=== PATIENT | female | born 1935 | race Caucasian/White ===

== ENCOUNTER → 2021-01-06 | Outpatient (REF) | payer MEDICARE ==
[2021-01-06 13:45] LABS: ATYPICAL LYMPH 33 % (0-5); EOSINOPHILS 3 % (0-3); LYMPHOCYTES 33 % (16-44); MONOCYTES 7 % (0-5); NEUTROPHILS 24 % (28-66); PLATELET ESTIMATE NORMAL (NORMAL); SMUDGE CELLS 1+
== END ==
LOC: M LAB REF 12:15
PROVIDERS: ATTEND Family Medicine
DX: D72.9 Disorder of white blood cells, unspecified (principal)

== ENCOUNTER → 2021-06-22 | Outpatient (REF) | payer MEDICARE ==
[2021-06-22 20:18] LABS: ATYPICAL LYMPH 5 % (0-5); BASOPHILS 1 % (0-1); EOSINOPHILS 2 % (0-3); LYMPHOCYTES 65 % (16-44); MONOCYTES 6 % (0-5); NEUTROPHILS 21 % (28-66)
[2021-06-22 20:19] LABS: PLATELET ESTIMATE NORMAL (NORMAL)
== END ==
LOC: M LAB REF 16:24
PROVIDERS: ATTEND Family Medicine
DX: D72.820 Lymphocytosis (symptomatic) (principal)

== ENCOUNTER → 2021-06-28 | Outpatient (REF) | payer MEDICARE | LOC: M LAB REF 11:39 | PROVIDERS: ATTEND Family Medicine | DX: D72.89 Other specified disorders of white blood cells (principal) ==

== ENCOUNTER → 2021-12-21 | Outpatient (REF) | payer MEDICARE ==
[~2021-12-21] MED LIST: BIMA01SOL
[2021-12-21 19:43] LABS: ATYPICAL LYMPH 4 % (0-5); EOSINOPHILS 2 % (0-3); LYMPHOCYTES 66 % (16-44); MONOCYTES 1 % (0-5); NEUTROPHILS 27 % (28-66); SMUDGE CELLS 1+
[2021-12-21 19:44] LABS: PLATELET ESTIMATE NORMAL (NORMAL)
== END ==
LOC: M LAB REF 16:25
PROVIDERS: ATTEND Family Medicine
DX: D72.9 Disorder of white blood cells, unspecified (principal)

== ENCOUNTER → 2022-06-13 | Outpatient (CLI) | payer MEDICARE ==
[~2022-06-13] MED LIST changes: +XANA0.25
== END ==
LOC: M EKG 10:36
PROVIDERS: ATTEND Family Medicine
DX: R00.2 Palpitations (principal)

== ENCOUNTER → 2022-06-22 | Outpatient (REF) | payer MEDICARE ==
[2022-06-22 20:58] LABS: ATYPICAL LYMPH 1 % (0-5); EOSINOPHILS 2 % (0-3); LYMPHOCYTES 70 % (16-44); MONOCYTES 2 % (0-5); NEUTROPHILS 25 % (28-66)
[2022-06-22 20:59] LABS: PLATELET ESTIMATE NORMAL (NORMAL)
== END ==
LOC: M LAB REF 16:09
PROVIDERS: ATTEND Family Medicine
DX: D72.9 Disorder of white blood cells, unspecified (principal)

== ENCOUNTER → 2023-04-27 | Outpatient (REF) | payer MEDICARE | LOC: M LAB REF 21:09 | PROVIDERS: ATTEND Physician Assistant | DX: B34.9 Viral infection, unspecified (principal) ==

== ENCOUNTER → 2023-05-11 | Outpatient (CLI) | payer MEDICARE | LOC: M RAD 14:37 | PROVIDERS: ATTEND Physician Assistant | DX: J34.89 Other specified disorders of nose and nasal sinuses (principal) ==

== ENCOUNTER → 2023-06-15 | Outpatient (REF) | payer MEDICARE | LOC: M LAB REF 16:11 | PROVIDERS: ATTEND Family Medicine | DX: N39.0 Urinary tract infection, site not specified (principal) ==

== ENCOUNTER → 2023-07-06 | Outpatient (REF) | payer MEDICARE | LOC: M LAB REF 16:15 | PROVIDERS: ATTEND Physician Assistant Medical | DX: N39.0 Urinary tract infection, site not specified (principal) ==

== ENCOUNTER → 2023-07-21 | Outpatient (REF) | payer MEDICARE | LOC: M LAB REF 13:44 | PROVIDERS: ATTEND Family Medicine | DX: R35.0 Frequency of micturition (principal); R30.0 Dysuria ==

== ENCOUNTER → 2023-08-07 | Outpatient (REF) | payer MEDICARE | LOC: M LAB REF 16:19 | PROVIDERS: ATTEND Family Medicine | DX: R35.0 Frequency of micturition (principal) ==

== ENCOUNTER → 2023-09-18 | Outpatient (REF) | payer MEDICARE | LOC: M LAB REF 16:23 | PROVIDERS: ATTEND Family Medicine | DX: Z01.818 Encounter for other preprocedural examination (principal); R35.0 Frequency of micturition ==

== ENCOUNTER 2023-09-26 07:27 | Day surgery (SDC) | payer MEDICARE ==
[~2023-09-26] VITALS: Ht 154.9 cm; Wt 47.3 kg
[~2023-09-26 07:27] MED LIST changes: +BSS IRR 500ML/OMIDRIA 4ML IRR BAG (OR ONLY) As Ordered ONE; +CEFUROXIME 1MG/0.1ML INTRACAMERAL INJ As Ordered ONE; +CYCLOPENTOLATE 1% OPHTH SOLN 2ML BTL OS SCH; +LIDOCAINE 1% SDV 5ML VIAL As Ordered ONE; +OFLOXACIN 0.3 % (OCUFLOX) OPTH SOL 5ML OS SCH; +PHENYLEPHRINE 2.5% OPHTH SOL 2ML OS SCH; +PROPARACAINE 0.5% OPHTH SOL 15ML OS ONE; +TROPICAMIDE 1% OPHTH SOLN 15ML OS SCH
[2023-09-26] MEDS ORDERED: MOXIFLOXACIN 0.6MG/0.4ML INTRAOCULAR SYRINGE IO ONE (07:30)
[2023-09-26] MEDS ORDERED: MIDAZOLAM INJ 2MG/2ML VIAL As Ordered ONE (07:53)
[2023-09-26] MEDS ORDERED: fentaNYL 100 MCG/2 ML INJECTION As Ordered ONE (07:53)
[2023-09-26 09:45] VITALS: BP 151/86; TEMP 97.3; O2SAT 96
== END 2023-09-26 10:07 | disposition home or self-care (01) ==
LOC: M SDC 07:27
PROVIDERS: ATTEND Ophthalmology
DX: H25.12 Age-related nuclear cataract, left eye (principal); H40.1122 Primary open-angle glaucoma, left eye, moderate stage; H57.03 Miosis; Z79.899 Other long term (current) drug therapy; Z88.0 Allergy status to penicillin; Z88.5 Allergy status to narcotic agent; Z88.2 Allergy status to sulfonamides; F41.9 Anxiety disorder, unspecified
CPT/HCPCS: 66174; 66982; C1889; J1097; J2250; J3010; V2632

== ENCOUNTER → 2024-07-12 | Outpatient (REF) | payer MEDICARE ==
[~2024-07-12] MED LIST changes: -BSS IRR 500ML/OMIDRIA 4ML IRR BAG (OR ONLY) As Ordered ONE; -CEFUROXIME 1MG/0.1ML INTRACAMERAL INJ As Ordered ONE; -CYCLOPENTOLATE 1% OPHTH SOLN 2ML BTL OS SCH; -LIDOCAINE 1% SDV 5ML VIAL As Ordered ONE; -OFLOXACIN 0.3 % (OCUFLOX) OPTH SOL 5ML OS SCH; -PHENYLEPHRINE 2.5% OPHTH SOL 2ML OS SCH; -PROPARACAINE 0.5% OPHTH SOL 15ML OS ONE; -TROPICAMIDE 1% OPHTH SOLN 15ML OS SCH
[2024-07-12 18:00] LABS: APPEARANCE, URINE CLEAR (CLEAR); BACTERIA, URINE AUTO NEGATIVE (NEGATIVE); BILIRUBIN, URINE AUTO NEGATIVE (NEGATIVE); BLOOD, URINE BLOOD NEGATIVE (NEGATIVE); COLOR, URINE YELLOW (YELLOW); GLUCOSE, URINE (UA) AUTO NEGATIVE (NEGATIVE); KETONE, URINE AUTO NEGATIVE (NEGATIVE); LEUKOCYTE ESTERASE, URINE AUTO 2+ (NEGATIVE); MUCUS, URINE SMALL (NEGATIVE); NITRITE, URINE AUTO NEGATIVE (NEGATIVE); PROTEIN, URINE AUTO NEGATIVE (NEGATIVE); RBC, URINE AUTO 1 /HPF (0-3); SPECIFIC GRAVITY URINE AUTO 1.002 (1.002-1.035); SQUAMOUS EPITHELIAL CELL UR AU 0 /HPF (0-6); UROBILINOGEN, URINE AUTO 0.2 mg/dL (0.0-2.0); WBC, URINE AUTO 8 /HPF (0-3)
== END ==
LOC: M LAB REF 16:23
PROVIDERS: ATTEND Physician Assistant
DX: N39.0 Urinary tract infection, site not specified (principal)

== ENCOUNTER → 2024-09-09 | Outpatient (REF) | payer MEDICARE ==
[2024-09-09 15:06] LABS: ATYPICAL LYMPH 20 % (0-5); EOSINOPHILS 2 % (0-3); LYMPHOCYTES 45 % (16-44); MONOCYTES 9 % (0-5); NEUTROPHILS 23 % (28-66)
[2024-09-09 15:12] LABS: PLATELET ESTIMATE NORMAL (NORMAL)
== END ==
LOC: M LAB REF 12:42
PROVIDERS: ATTEND Family Medicine
DX: C91.10 Chronic lymphocytic leukemia of B-cell type not having achieved remission (principal); D72.9 Disorder of white blood cells, unspecified

== ENCOUNTER → 2025-03-25 | Outpatient (REF) | payer MEDICARE ==
[2025-03-25 13:43] LABS: EOSINOPHILS 1 % (0-3); LYMPHOCYTES 68 % (16-44); MONOCYTES 8 % (0-5); NEUTROPHILS 23 % (28-66)
[2025-03-25 13:45] LABS: PLATELET ESTIMATE NORMAL (NORMAL)
== END ==
LOC: M LAB REF 12:18
PROVIDERS: ATTEND Family Medicine
DX: C91.10 Chronic lymphocytic leukemia of B-cell type not having achieved remission (principal)